=== PATIENT | male | born 1940 | race Caucasian/White ===

== ENCOUNTER 2021-05-10 08:37 | Outpatient (REF) | payer MEDICARE, OTHER, SELFPAY ==
--- NOTE | ~2021-05-10 | XR_ITS ---
EXAMINATION: XR KNEE-AP UPRIGHT-BILATERAL XR [id number] VIEWS CLINICAL INFORMATION: Right knee pain. COMPARISON: Right knee done on 06/16/2017. TECHNIQUE: Upright frontal views of both knees and lateral and patellofemoral views of the right knee were obtained. FINDINGS: Left knee: Frontal view only radiograph of the left knee shows mild osteoarthrosis at both medial and lateral compartments and mild periarticular osteopenia. Right knee: Marked decrease joint space, subchondral sclerosis, osteophyte formations, consistent with severe lateral compartmental and mild to moderate medial and patellofemoral compartmental osteoarthrosis is seen, shows progression since prior study dated 06/16/2017. No evidence of any effusion. Mild periarticular osteopenia. 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 XR/XR knee standing BI IMPRESSION: 1. Single frontal view of the left knee shows mild osteoarthrosis at both medial and lateral compartments. 2. 3 views of the right knee shows severe osteoarthrosis of the lateral compartment and mild to moderate osteoarthrosis of the medial and patellofemoral compartment shows progression since 06/16/2017.
--- NOTE | ~2021-05-10 | XR_ITS ---
EXAMINATION: XR KNEE-AP UPRIGHT-BILATERAL XR [id number] VIEWS CLINICAL INFORMATION: Right knee pain. COMPARISON: Right knee done on 06/16/2017. TECHNIQUE: Upright frontal views of both knees and lateral and patellofemoral views of the right knee were obtained. FINDINGS: Left knee: Frontal view only radiograph of the left knee shows mild osteoarthrosis at both medial and lateral compartments and mild periarticular osteopenia. Right knee: Marked decrease joint space, subchondral sclerosis, osteophyte formations, consistent with severe lateral compartmental and mild to moderate medial and patellofemoral compartmental osteoarthrosis is seen, shows progression since prior study dated 06/16/2017. No evidence of any effusion. Mild periarticular osteopenia. 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 XR/XR knee RT 2V IMPRESSION: 1. Single frontal view of the left knee shows mild osteoarthrosis at both medial and lateral compartments. 2. 3 views of the right knee shows severe osteoarthrosis of the lateral compartment and mild to moderate osteoarthrosis of the medial and patellofemoral compartment shows progression since 06/16/2017.
== END 2021-05-10 08:38 | disposition home or self-care (01) ==
LOC: HO.HOSX 08:37
PROVIDERS: Visit Provider Orthopaedic Surgery
DX: M17.11 Unilateral primary osteoarthritis, right knee (principal)
CPT/HCPCS: 20610; 73560; 73565; 99212; J1100

== ENCOUNTER → 2021-08-09 13:48 | Outpatient (BNVA) | payer MEDICARE, OTHER, SELFPAY | PROVIDERS: PCP Family Medicine; Visit Provider Orthopaedic Surgery | DX: M17.11 Unilateral primary osteoarthritis, right knee (principal) | CPT/HCPCS: 20605; 99212; J1100 ==

== ENCOUNTER → 2021-11-15 14:18 | Outpatient (BNVA) | payer MEDICARE, OTHER, SELFPAY | PROVIDERS: PCP Family Medicine; Visit Provider Orthopaedic Surgery | DX: M17.11 Unilateral primary osteoarthritis, right knee (principal); M54.16 Radiculopathy, lumbar region | CPT/HCPCS: 20610; 99212; J1100 ==

== ENCOUNTER → 2021-12-10 15:26 | Outpatient (BNVA) | payer MEDICARE, OTHER, SELFPAY | PROVIDERS: PCP Family Medicine; Visit Provider Anesthesiology | DX: M47.816 Spondylosis without myelopathy or radiculopathy, lumbar region (principal); M46.1 Sacroiliitis, not elsewhere classified; M17.11 Unilateral primary osteoarthritis, right knee; M15.9 Polyosteoarthritis, unspecified; M25.561 Pain in right knee; G89.29 Other chronic pain; M53.3 Sacrococcygeal disorders, not elsewhere classified | CPT/HCPCS: 99202 ==

== ENCOUNTER → 2022-04-08 14:41 | Outpatient (BNVA) | payer MEDICARE, OTHER, SELFPAY | PROVIDERS: PCP Family Medicine; Visit Provider Orthopaedic Surgery | DX: M17.11 Unilateral primary osteoarthritis, right knee (principal) | CPT/HCPCS: 99212 ==

== ENCOUNTER → 2022-04-22 14:26 | Outpatient (BNVA) | payer MEDICARE, OTHER, SELFPAY | PROVIDERS: PCP Family Medicine; Visit Provider Orthopaedic Surgery | DX: M17.11 Unilateral primary osteoarthritis, right knee (principal) | CPT/HCPCS: 20610; 99212; J7318 ==

== ENCOUNTER → 2022-05-24 11:56 | Outpatient (BNVA) | payer MEDICARE, OTHER, SELFPAY | PROVIDERS: PCP Family Medicine; Visit Provider Orthopaedic Surgery | DX: M71.21 Synovial cyst of popliteal space [Baker], right knee (principal); M17.11 Unilateral primary osteoarthritis, right knee; G20 Parkinson's disease; I10 Essential (primary) hypertension; E78.00 Pure hypercholesterolemia, unspecified | CPT/HCPCS: 20610; 99212; J1100 ==